=== PATIENT | female | born 1960 | race American Indian/Alaskan Native ===

== ENCOUNTER 2017-07-22 18:27 | Emergency (ER) | payer OTHER ==
--- NOTE | 2017-07-22 19:10 | Emergency Department Report ---
ED Shortness of Breath HPI - General Chief Complaint: Dyspnea/Respdistress Stated Complaint: FLU LIKE SYMPTOMS Time Seen by Provider: 07/22/17 19:00 Source: patient, family Mode of arrival: Ambulatory Limitations: No Limitations - History of Present Illness Initial Comments: Requires a autocad technician, states that around 5pm today, she "couldn't breath" and she was clenching her jaw. No previous history of this. Has a history of HTN, family state that her blood was "very thick" and used to have seizures in the past, but not any more. CVA is also present in the family. MD Complaint: shortness of breath, cough -: Gradual, days(s) (4) Radiation: jaw Severity: moderate Quality: other (states that her nose is very congested) Consistency: constant Improves With: nothing Worsens With: nothing Known History Of: other (chronic cough) Context: recent URI Associated Symptoms: chest pain (felt it once like a cramp when she experienced her shortness of breath earlier), fever, cough, sputum production Treatments Prior to Arrival: none - Related Data Home Oxygen Therapy: No Previous Rx's Medication Instructions Recorded Last Taken Type Amoxicillin/Potassium Clav 1 each PO BID #20 tablet 07/23/17 Unknown Rx [Augmentin 875-125 Tablet] Allergies Allergy/AdvReac Type Severity Reaction Status Date / Time No Known Allergies Allergy Unverified 12/24/14 08:37 ED Review of Systems ROS: Stated complaint: FLU LIKE SYMPTOMS Other details as noted in HPI Comment: All other systems reviewed and negative Constitutional: see HPI, fever, weakness Eyes: as per HPI ENT: as per HPI Respiratory: cough, shortness of breath Cardiovascular: as per HPI Endocrine: see HPI Gastrointestinal: as per HPI. denies: abdominal pain, nausea, vomiting, diarrhea Genitourinary: as per HPI Musculoskeletal: as per HPI, myalgia, other (body aches, lower extremity edema) Skin: as per HPI Neurological: as per HPI Psychiatric: as per HPI Hematological/Lymphatic: as per HPI ED Past Medical Hx - Past Medical History Hx Hypertension: Yes - Social History Smoking Status: Never Smoker - Medications Home Medications: Home Medications Medication Instructions Recorded Confirmed Last Taken Type Amoxicillin/Potassium Clav 1 each PO BID #20 tablet 07/23/17 Unknown Rx [Augmentin 875-125 Tablet] ED Physical Exam - General Limitations: Language Barrier General appearance: alert, in no apparent distress - Head Head exam: Present: atraumatic, normocephalic - Eye Eye exam: Present: normal appearance, PERRL, EOMI Pupils: Present: normal accommodation - ENT ENT exam: Present: normal orophraynx, mucous membranes moist - Neck Neck exam: Present: normal inspection, full ROM - Respiratory Respiratory exam: Present: normal lung sounds bilaterally. Absent: respiratory distress, wheezes, rales, rhonchi - Cardiovascular Cardiovascular Exam: Present: regular rate, normal heart sounds - GI/Abdominal GI/Abdominal exam: Present: soft, normal bowel sounds. Absent: distended, tenderness, guarding, rebound, rigid - Extremities Exam Extremities exam: Present: normal inspection, full ROM. Absent: pedal edema - Back Exam Back exam: Present: normal inspection, full ROM - Neurological Exam Neurological exam: Present: alert, oriented X3, CN II-XII intact - Psychiatric Psychiatric exam: Present: normal affect, normal mood - Skin Skin exam: Present: warm, dry, intact, normal color, rash ED Course Vital Signs 07/22/17 07/22/17 07/22/17 18:46 19:30 20:00 Temperature 98.0 F 98.4 F Pulse Rate 98 H 83 82 Respiratory 20 24 17 Rate Blood Pressure 165/102 160/85 Blood Pressure 142/94 [Left] O2 Sat by Pulse 99 100 100 Oximetry - Reevaluation(s) Reevaluation #1: 07/23/17 01:40 Essentially, the patient's lab findings are unremarkable. At this time I feel that that she probably has an upper respiratory infection, probably sinusitis. Constellation of symptoms do not really fit one particular condition at this time. Unfortunately, the language barrier is also a huge problem. She speaks absolutely no [place] at this time. The family however translates as best as they can. At this time we will go ahead and treat the patient for suspected acute sinusitis and she is to follow-up with her primary care doctor. I explained this to the family. Chest x-ray only shows minimal enlargement of the heart and is otherwise unremarkable. There is no sign of any infiltrates. Her flu test has been pending now for quite some time. ED Medical Decision Making - Lab Data Result diagrams: 07/22/17 19:04 07/22/17 19:04 Critical care attestation.: If time is entered above; I have spent that time in minutes in the direct care of this critically ill patient, excluding procedure time. ED Disposition Clinical Impression: Sinusitis Qualifiers: Sinusitis location: maxillary Chronicity: acute Recurrence: non-recurrent Qualified Code(s): J01.00 - Acute maxillary sinusitis, unspecified Disposition: TO HOME OR SELFCARE Is pt being admited?: No Does the pt Need Aspirin: No Condition: Stable Instructions: Sinusitis (ED) Additional Instructions: Rest, fluids, follow up with your primary care doctor of choice, take medications as directly, return as needed. Prescriptions: Amoxicillin/Potassium Clav [Augmentin 875-125 Tablet] 1 each PO BID #20 tablet Referrals: LUDWIN JOHN MD [Primary Care Provider] - 3-5 Days
[2017-07-22 19:13] LABS: Basophils # (Auto) 0.1 K/mm3 (0.0-0.1); Basophils % (Auto) 1.3 % (0.0-1.8); Hematocrit 48.8 % (30.3-42.9); Hemoglobin 16.4 gm/dl (10.1-14.3); Lymphocytes # (Auto) 1.8 K/mm3 (1.2-5.4); Lymphocytes % (Auto) 45.2 % (13.4-35.0); Mean Corpuscular HGB Conc 34 % (30-34); Mean Corpuscular Hemoglobin 32 pg (28-32); Mean Corpuscular Volume 94 fl (79-97); Monocytes # (Auto) 0.6 K/mm3 (0.0-0.8); Platelet Count 191 K/mm3 (140-440); Red Blood Count 5.17 M/mm3 (3.65-5.03); Red Cell Distribution Width 13.2 % (13.2-15.2)
[2017-07-22 19:23] LABS: BUN/Creatinine Ratio 13; Blood Urea Nitrogen 13 mg/dL (7-17); Hemolysis Index 17
--- NOTE | 2017-07-22 20:04 | XRay Report ---
FINAL REPORT PROCEDURE: PA and lateral chest x-ray TECHNIQUE: PA and lateral chest radiographs were obtained. CPT 34314 HISTORY: Shortness of breath COMPARISON: No prior studies are available for comparison. FINDINGS: Heart: Upper normal size to mildly enlarged.. Mediastinum/Vessels: Normal. Lungs/Pleural space: Linear band of atelectasis or scarring seen in the lower 3rd of the left lung medially. Lungs otherwise are clear. No dense consolidations effusions or pneumothorax visualized.. Bony thorax: No acute osseous abnormality. Other: IMPRESSION: Heart size upper normal to minimally enlarged. Thin band of atelectasis or scarring lower 3rd left lung as described. No acute infiltrates are identified..
[2017-07-23 02:55] VITALS: BP 130/81
== END 2017-07-23 02:57 | disposition home or self-care (01) ==
LOC: ED 18:27
DX: J01.00 Acute maxillary sinusitis, unspecified (principal); I10 Essential (primary) hypertension
CPT/HCPCS: 36415; 71046; 80048; 85025; 87400; 93005; 93010; 99284